=== PATIENT | female | born 1960 | race Caucasian/White ===

== ENCOUNTER 2016-05-13 16:46 | Emergency (ER) | payer MEDICAID ==
[~2016-05-13] VITALS: Ht 157.5 cm; Wt 86.0 kg
[2016-05-13 16:49] VITALS: BP 147/89; PULSE 86; RESP 16; TEMP 98.4; O2SAT 98
[2016-05-13] MEDS ORDERED: BENZ100 PO (16:58)
[2016-05-13] MEDS ORDERED: PRED20 PO (16:58)
[2016-05-13] MEDS ORDERED: AZIT250T3 PO (16:58)
[2016-05-13] MEDS ORDERED: ZOLO50TA PO (17:00)
--- NOTE | 2016-05-13 17:10 | PD ---
HPI Chief Complaint: Cold / Flu Symptoms Time Seen by Provider: 17:05 Travel History International Travel<30 days: No Contact w/Intl Traveler<30days: No Traveled to known affect area: No History of Present Illness HPI 56-year-old female that presents to the ED for evaluation of cold-like symptoms. Patient has had cough and chest pain with a cough for the past 2 days. Patient reports the cough is nonproductive. States having congestion. No fevers chills or sweats. No sick contacts. History of bronchitis in the past. History of all smoking. Has no allergies to medication. No abdominal pain. Chest pain only comes with cough. Has been taking OTC meds with minimal relief. No allergies to medication. PFSH Past Medical History Medical History: Denies Significant Hx Diminished Hearing: No Tetanus Vaccination: Never Vaccinated Influenza Vaccination: No ?: Not Past Surgical History Surgical History: No Previous Surgery Social History Alcohol Use: No Tobacco Use: No Substance Use: No Allergies-Medications (Allergen,Severity, Reaction): Coded Allergies: No Known Allergies (Unverified , 05/13/16) Reported Meds & Prescriptions Reported Meds & Active Scripts Active Tessalon Perles (Benzonatate) 100 Mg Cap 100 Mg PO TID PRN Azithromycin 250 Mg Tab 250 Mg PO DIRECTED Take 2 tabs (500 mg) on day 1 then 1 tab daily x 4 days. Prednisone 20 Mg Tab 20 Mg PO BID Reported Zoloft (Sertraline HCl) 50 Mg Tab 50 Mg PO DAILY Review of Systems Except as stated in HPI: all other systems reviewed are Neg Physical Exam Narrative GENERAL: Well-nourished, well-developed patient in no apparent distress. SKIN: Warm and dry. HEAD: Atraumatic. Normocephalic. EYES: Pupils equal and round reactive to light and accommodation. No scleral icterus. No injection or drainage. ENT: No nasal bleeding or discharge. Mucous membranes pink and moist. TMs are clear with no sign of infection or perforation. No mastoid tenderness. Ear canals are intact bilaterally. No lymphadenopathy. Nostril mucosa is red and moist with clear mucus noted. No sinus tenderness to palpation noted. Tonsils are not enlarged or swollen. No ulvua Deviation. Tongue is midline. NECK: Trachea midline. No JVD. No meningeal signs noted CARDIOVASCULAR: Regular rate and rhythm. RESPIRATORY: No accessory muscle use. Clear to auscultation. Breath sounds equal bilaterally. GASTROINTESTINAL: Abdomen soft, non-tender, nondistended. Hepatic and splenic margins not palpable. MUSCULOSKELETAL: Extremities without clubbing, cyanosis, or edema. No obvious deformities. Full range of motion of the upper and lower extremities bilaterally. NEUROLOGICAL: Awake and alert. No obvious cranial nerve deficits. Motor grossly within normal limits. Five out of 5 muscle strength in the arms and legs. Normal speech. PSYCHIATRIC: Appropriate mood and affect; insight and judgment normal. Data Data Last Documented VS Vital Signs Date Time Temp Pulse Resp B/P Pulse Ox O2 Delivery O2 Flow Rate FiO2 05/13/16 16:55 Room Air 05/13/16 16:49 98.4 86 16 147/89 98 Orders Chest, Single Ap (05/13/16 ) [facility] Medical Decision Making Medical Screen Exam Complete: Yes Emergency Medical Condition: Yes Medical Record Reviewed: Yes Interpretation(s) CXR negative for acute disease Differential Diagnosis URI versus pneumonia versus bronchitis Narrative Course 56-year-old female that presents to the ED for evaluation of cold-like symptoms. Patient was properly examined and was found to have signs and symptoms consistent appears to be bronchitis versus pneumonia. At this time I recommend chest x-ray to rule out pneumonia. Patient's agreement with this. Chest x-ray negative for pneumonia. Patient was reassured. This time I recommend treatment of bronchitis. Patient will be given Tessalon Perles, prednisone, azithromycin. Told to follow with PCP. Take OTC medicines as needed. See ED if worsening symptoms. Diagnosis Primary Impression: Bronchitis Patient Instructions: General Instructions Additional Instructions: Motrin and Tylenol for pain and fever. You can use [id number] antihistamine as well as well as Mucinex as needed for runny nose and congestion. Cough drops for cough as needed. Drink plenty of fluids. Follow-up with PCP. See ED for worsening symptoms. Med/Other Pt SpecificInfo: Prescription(s) given Scripts Benzonatate (Tessalon Perles)100 Mg [id number] Mg PO TID PRN (COUGH) #20 CAP Prov:Joao Alaniz MD 05/13/16 Azithromycin 250 Mg [id number] Mg PO DIRECTED #6 TAB Take 2 tabs (500 mg) on day 1 then 1 tab daily x 4 days. Prov:Joao Alaniz MD 05/13/16 Prednisone 20 Mg Tab20 Mg PO BID #10 TAB Prov:Joao Alaniz MD 05/13/16 Disposition: 01 DISCHARGE HOME Condition: Stable Angel De Oliveira May 13, 2016 17:10
--- NOTE | 2016-05-13 17:26 | RADHPO ---
EXAM DATE/TIME: 05/13/2016 16:55 [facility] COMPARISON: No previous studies available for comparison. INDICATIONS : Patient states cough and chest pressure, MEDICAL HISTORY : None. SURGICAL HISTORY : None. ENCOUNTER: Initial ACUITY: 3 days PAIN SCORE: 2/10 LOCATION: Bilateral chest FINDINGS: A single view of the chest demonstrates the lungs to be symmetrically aerated without evidence of mas s, infiltrate or effusion. The cardiomediastinal contours are unremarkable. Osseous structures are intact. CONCLUSION: Normal examination for a patient of this age. Andres Salazar MD on May 13, 2016 at 17:25 Board Certified Radiologist. This report was verified electronically.
== END 2016-05-13 17:50 | disposition home or self-care (01) ==
LOC: PHEFT 16:46
DX: J40 Bronchitis, not specified as acute or chronic (principal); Z87.891 Personal history of nicotine dependence
CPT/HCPCS: 71010; 99283

== ENCOUNTER 2017-06-22 17:13 | Observation (INO) | payer SELFPAY ==
[2017-06-22] VITALS (7 sets, daily range): BP systolic 124–146; BP diastolic 78–102; PULSE 54–81; RESP 16–18; TEMP 95.8–98.5; O2SAT 95–99
[~2017-06-22] VITALS: Ht 157.5 cm; Wt 77.1 kg
[~2017-06-22 17:13] MED LIST: AZIT250T3 PO; BENZ100 PO; PRED20 PO; ZOLO50TA PO
[2017-06-22] MEDS ORDERED: SODIUM CHLORID 0.9% 500 ML INJ 500 ML IV ONE (18:00)
[2017-06-22] MEDS ORDERED: ASPIRIN 81 MG CHEW TAB PO ONE (18:00)
[2017-06-22] MEDS ORDERED: SODIUM CHLORIDE 0.9% FLUSH 10 ML FLUSH IVF PRN (18:00)
[2017-06-22 18:19] LABS: AUTOMATED NEUTROPHIL # 4.4 TH/MM3 (1.8-7.7); BASOPHIL # 0.1 TH/MM3 (0-0.2); BASOPHIL % 1.1 % (0.0-2.0); EOSINOPHIL # 0.2 TH/MM3 (0-0.4); HEMATOCRIT 41.7 % (35.0-46.0); HEMOGLOBIN 14.1 GM/DL (11.6-15.3); LYMPH % 38.3 % (9.0-44.0); LYMPHOCYTE # 3.3 TH/MM3 (1.0-4.8); MEAN CORPUSCULAR HEMOGLOBIN 30.9 PG (27.0-34.0); MEAN CORPUSCULAR HGB CONC 33.9 % (32.0-36.0); MEAN PLATELET VOLUME 8.7 FL (7.0-11.0); MONO % 6.9 % (0.0-8.0); MONOCYTE # 0.6 TH/MM3 (0-0.9); NEUT % 51.7 % (16.0-70.0); PLATELET COUNT 259 TH/MM3 (150-450); RED BLOOD COUNT 4.58 MIL/MM3 (4.00-5.30); RED CELL DISTRIBUTION WIDTH 12.1 % (11.6-17.2); WHITE BLOOD COUNT 8.6 TH/MM3 (4.0-11.0)
[2017-06-22 18:31] LABS: CHLORIDE 106 MEQ/L (98-107); SODIUM (NA) 139 MEQ/L (136-145)
[2017-06-22 18:34] LABS: CALCIUM 8.6 MG/DL (8.5-10.1)
[2017-06-22 18:35] LABS: ALBUMIN 3.8 GM/DL (3.4-5.0); BLOOD UREA NITROGEN 16 MG/DL (7-18); GLUCOSE,RANDOM 96 MG/DL (74-106); MAGNESIUM 2.3 MG/DL (1.5-2.5); PROTHROMBIN TIME - PATIENT 10.6 SEC (9.8-11.6)
[2017-06-22 18:38] LABS: ALT (GPT) 39 U/L (10-53); AST (GOT) 26 U/L (15-37); GLOMERULAR FILTRATION RATE 52 ML/MIN (>89)
[2017-06-22 18:39] LABS: TOTAL BILIRUBIN ADULT 0.4 MG/DL (0.2-1.0)
[2017-06-22 18:41] LABS: ALKALINE PHOSPHATASE 94 U/L (45-117)
[2017-06-22 18:43] LABS: TROPONIN I LESS THAN 0.02 NG/ML (0.02-0.05)
[2017-06-22] MEDS ORDERED: MORPHINE SULFATE 4 MG/ML INJ IV PUSH ONE (18:45)
--- NOTE | 2017-06-22 18:48 | RADRPT ---
EXAM DATE/TIME: 06/22/2017 18:10 [facility] COMPARISON: No previous studies available for comparison. INDICATIONS : Chest pain. Belching frequently. MEDICAL HISTORY : None. SURGICAL HISTORY : None. ENCOUNTER: Initial ACUITY: 1 day PAIN SCORE: 8/10 LOCATION: Bilateral chest FINDINGS: PA and lateral views of the chest demonstrate the lungs to be symmetrically aerated without evidence of mass, infiltrate or effusion. The cardiomediastinal contours are unremarkable. Osseous structure s are intact. CONCLUSION: No acute disease. Олег Kaiser MD on June 22, 2017 at 18:42 Board Certified Radiologist. This report was verified electronically.
--- NOTE | 2017-06-22 20:28 | PD ---
HPI Chief Complaint: Chest Pain Time Seen by Provider: 17:31 Travel History International Travel<30 days: No Contact w/Intl Traveler<30days: No Traveled to known affect area: No History of Present Illness HPI Is a 57-year-old woman who presents to the emergency department complaining of chest pain. She reports epigastric fullness and discomfort over the past couple months. She describes a choking fullness in her chest and epigastrium. Seems to be related to eating. Not really worse with exertion. She does feel a suffocating fullness that she relates to being short of breath. She also feels abdominal fullness and bloating and states she put on 20 pounds over the past couple months. She otherwise had been feeling well and healthy. Symptoms were worse today and so she came to the emergency department. There are little bit worse with certain positions when she lays flat. Sometimes seems to be worse at night. No significant medical history. History Past Medical History Medical History: Denies Significant Hx Tetanus Vaccination: Unknown Social History Alcohol Use: No Tobacco Use: No Allergies-Medications (Allergen,Severity, Reaction): Coded Allergies: No Known Allergies (Unverified Adverse Reaction, Unknown, 06/22/17) Reported Meds & Prescriptions Reported Meds & Active Scripts Active Reported Zoloft (Sertraline HCl) 50 Mg Tab 50 Mg PO DAILY Review of Systems Except as stated in HPI: all other systems reviewed are Neg Physical Exam Narrative GENERAL: Well-appearing 57-year-old woman, no acute distress per SKIN: Focused skin assessment warm/dry. HEAD: Atraumatic. Normocephalic. EYES: Pupils equal and round. No scleral icterus. No injection or drainage. ENT: No nasal bleeding or discharge. Mucous membranes pink and moist. NECK: Trachea midline. No JVD. CARDIOVASCULAR: Regular rate and rhythm. No murmur appreciated. RESPIRATORY: No accessory muscle use. Clear to auscultation. Breath sounds equal bilaterally. GASTROINTESTINAL: Minimal epigastric tenderness. No significant right upper quadrant tenderness. MUSCULOSKELETAL: No obvious deformities. No clubbing. No cyanosis. No edema. NEUROLOGICAL: Awake and alert. No obvious cranial nerve deficits. Motor grossly within normal limits. Normal speech. PSYCHIATRIC: Appropriate mood and affect; insight and judgment normal. Data Data Last Documented VS Vital Signs Date Time Temp Pulse Resp B/P (MAP) Pulse Ox O2 Delivery O2 Flow Rate FiO2 06/22/17 20:37 70 18 140/83 (102) 98 Room Air 06/22/17 17:57 2.00 06/22/17 17:30 98.5 Orders Orders Electrocardiogram (06/22/17 17:53) Complete Blood Count With Diff (06/22/17 17:53) Comprehensive Metabolic Panel (06/22/17 17:53) Magnesium (Mg) (06/22/17 17:53) Prothrombin Time / Inr (Pt) (06/22/17 17:53) Act Partial Throm Time (Ptt) (06/22/17 17:53) Troponin I (06/22/17 17:53) Lipase (06/22/17 17:53) Ecg Monitoring (06/22/17:53) Iv Access Insert/Monitor (06/22/17 17:53) Oximetry (06/22/17 17:53) Oxygen Administration (06/22/17 17:53) Aspirin Chew (Aspirin Chew) (06/22/17 18:00) Sodium Chloride 0.9% Flush (Ns Flush) (06/22/17 18:00) Sodium Chlorid 0.9% 500 Ml Inj (Ns 500 M (06/22/17 18:00) Chest, Pa & Lat (06/22/17 17:53) B-Type Natriuretic Peptide (06/22/17 18:27) Morphine Inj (Morphine Inj) (06/22/17 18:45) Us Abdomen Gallbladder (06/22/17 ) Admit Order (Ed Use Only) (06/22/17 ) Activity Bed Rest With Brp (06/22/17 21:48) Vital Signs (Adult) Q4H (06/22/17 21:48) Cardiac Rhythm .As Directed (06/22/17 21:48) Notify Dr: Other .PRN (06/22/17 21:48) Notify . Parameters (06/22/17 21:48) Resp Oxygen Nasal Cannula (06/22/17 ) Ckmb (Isoenzyme) Profile (06/22/17 21:48) Ckmb (Isoenzyme) Profile (06/23/17 00:48) Troponin I (06/22/17 21:48) Troponin I (06/23/17 00:48) Electrocardiogram (06/22/17 21:48) Electrocardiogram (06/23/17 00:48) ^ Obtain (06/22/17 21:48) Coin Teller / Telemetry [id number] (06/22/17 21:48) Labs Laboratory Tests Test 06/22/17 17:50 White Blood Count 8.6 TH/MM3 Red Blood Count 4.58 MIL/MM3 Hemoglobin 14.1 GM/DL Hematocrit 41.7 % Mean Corpuscular Volume 91.0 FL Mean Corpuscular Hemoglobin 30.9 PG Mean Corpuscular Hemoglobin Concent 33.9 % Red Cell Distribution Width 12.1 % Platelet Count 259 TH/MM3 Mean Platelet Volume 8.7 FL Neutrophils (%) (Auto) 51.7 % Lymphocytes (%) (Auto) 38.3 % Monocytes (%) (Auto) 6.9 % Eosinophils (%) (Auto) 2.0 % Basophils (%) (Auto) 1.1 % Neutrophils # (Auto) 4.4 TH/MM3 Lymphocytes # (Auto) 3.3 TH/MM3 Monocytes # (Auto) 0.6 TH/MM3 Eosinophils # (Auto) 0.2 TH/MM3 Basophils # (Auto) 0.1 TH/MM3 CBC Comment DIFF FINAL Differential Comment Prothrombin Time 10.6 SEC Prothromb Time International Ratio 1.0 RATIO Activated Partial Thromboplast Time 26.1 SEC Blood Urea Nitrogen 16 MG/DL Creatinine 1.10 MG/DL Random Glucose 96 MG/DL Total Protein 8.0 GM/DL Albumin 3.8 GM/DL Calcium Level 8.6 MG/DL Magnesium Level 2.3 MG/DL Alkaline Phosphatase 94 U/L Aspartate Amino Transf (AST/SGOT) 26 U/L Alanine Aminotransferase (ALT/SGPT) 39 U/L Total Bilirubin 0.4 MG/DL Sodium Level 139 MEQ/L Potassium Level 3.7 MEQ/L Chloride Level 106 MEQ/L Carbon Dioxide Level 27.0 MEQ/L Anion Gap 6 MEQ/L Estimat Glomerular Filtration Rate 52 ML/MIN Troponin I LESS THAN 0.02 NG/ML B-Type Natriuretic Peptide 16 PG/ML Lipase 222 U/L [facility] Medical Decision Making Medical Screen Exam Complete: Yes Emergency Medical Condition: Yes Interpretation(s) My review of EKG: Normal sinus rhythm at a rate of 75, normal axis, maybe a little bit leftward, normal intervals, no definite evidence of acute ischemia. LABS CBC is unremarkable CMP remarkable for mildly elevated creatinine Troponin negative BNP 16 Lipase 222 Coags unremarkable Chest x-ray: No acute disease Differential Diagnosis Gastritis, reflux, hepatobiliary disease, pancreatitis, gastritis, ACS, PE, other Narrative Course Medical decision making Is a well-appearing 57-year-old woman presents with epigastric pain, postprandial, not really exertional, ongoing for a while, worse today. Some shortness of breath with it. May be a little bit short of breath with exertion. Abdominal bloating and fullness. She looks well. EKG is nondiagnostic. Will check ultrasound of the gallbladder. Reassess. FINAL: Initial workup is unremarkable. Likely this is GI the patient is developing new concerning symptoms including choking squeezing chest pain over the past 24 hours that she did not really have before. She does have shortness of breath with exertion as well. Taken altogether think she is a reasonable candidate for the chest pain center. She does not have any follow-up physician. I spoke with Dr. Chen who will accept the patient. Diagnosis Primary Impression: Chest pain Admitting Information Admitting Physician Requests: Observation Davey Yancey MD June 22, 2017 20:28
--- NOTE | 2017-06-22 21:06 | RADRPT ---
EXAM DATE/TIME: 06/22/2017 19:53 [facility] COMPARISON: No previous studies available for comparison. INDICATIONS : Belching and epigastric pain that radiates to the right. MEDICAL HISTORY : Glasses. Depression. SURGICAL HISTORY : Breast reduction. ENCOUNTER: Initial ACUITY: 1 month PAIN SCORE: 8/10 LOCATION: Right upper quadrant MEASUREMENTS: LIVER: 15.2 cm length COMMON DUCT: 4 mm RIGHT KIDNEY: 9.2 x 5.2 x 4.3 cm FINDINGS: LIVER: The liver is diffusely echogenic without focal lesion or ductal dilatation. COMMON DUCT: No intraluminal mass or stone visualized. GALLBLADDER: Contains no stones, demonstrates no wall thickening or pericholecystic fluid. PANCREAS: The visualized portions are within normal limits. RIGHT KIDNEY: No evidence of hydronephrosis, stone, or mass. CONCLUSION: Suspected hepatic steatosis. Олег Kaiser MD on June 22, 2017 at 21:04 Board Certified Radiologist. This report was verified electronically.
[2017-06-22 22:56] LABS: TROPONIN I LESS THAN 0.02 NG/ML (0.02-0.05)
[2017-06-23] VITALS (8 sets, daily range): BP systolic 113–168; BP diastolic 70–96; PULSE 55–70; RESP 18–20; TEMP 96.1–97.3; O2SAT 96–99
[2017-06-23 01:41] LABS: TROPONIN I LESS THAN 0.02 NG/ML (0.02-0.05)
--- NOTE | 2017-06-23 08:39 | HHI.HP ---
[facility] No Primary Care Physician Admission Diagnosis Chest pain Diagnoses: Chief Complaint: Chest pain Travel History International Travel<30 Days: No Contact w/Intl Traveler <30 Da: No Traveled to Known Affected Are: No History of Present Illness This is a pleasant 57-year-old female patient with no known medical history who presented to the ED with complaints of chest pain. Patient states the pain started yesterday in her midsternal chest and midepigastric area, states she felt like she "could not get her breath". Patient states the pain radiated up her neck, was characteristically sharp in nature, denies any nausea or vomiting or diaphoresis but did complain of shortness of breath with the pain. Patient rated the pain an 8 out of 10 at its worst and was intermittent throughout most of the day yesterday. Patient states that the pain became worse with activity and did subside with rest. Patient denies ever having this type of pain before. It should be noted that patient has gained roughly 20 pounds over the past 2 months. And does admit to abdominal fullness and bloating. Patient does not follow with a protozoologist although states she has had some digestive issues in the past. Denies any recent fever, chills, cough, headache , nausea, vomiting, diarrhea dysuria. Did undergo a cardiac stress test 10 years ago which was reportedly negative. Is not following with the primary care doctor, did recently moved from [place] last year. Patient has been undergoing a lot of stress. Denies any bloody stools or black stools. Troponins flat. Chest x-ray negative. Gallbladder ultrasound showing hepatic steatosis. EKG with sinus rhythm. No ST changes to indicate ischemia. Review of Systems Constitutional: COMPLAINS OF: Weight gain, DENIES: Diaphoretic episodes, Fatigue, Fever, Chills Eyes: DENIES: Diplopia, Eye inflammation Respiratory: COMPLAINS OF: Shortness of breath, DENIES: Cough, Sputum production Cardiovascular: COMPLAINS OF: Chest pain, DENIES: Palpitations Gastrointestinal: COMPLAINS OF: Abdominal pain, DENIES: Black stools, Bloody stools, Constipation, Diarrhea, Nausea, Vomiting Musculoskeletal: DENIES: Joint pain Hematologic/lymphatic: DENIES: Bruising Neurologic: DENIES: Abnormal gait Psychiatric: COMPLAINS OF: Anxiety Except as stated in HPI: all other systems reviewed are Neg Past Family Social History Past Medical History PTSD/depression Past Surgical History Denies any prior surgery. Reported Medications Active Reported Zoloft (Sertraline HCl) 50 Mg Tab 50 Mg PO DAILY Allergies: Coded Allergies: No Known Allergies (Unverified Allergy, Unknown, 06/23/17) Active Ordered Medications Current Medications Medications (Trade) Dose Ordered Sig/Deandre Route Start Time Stop Time Status Last Admin (NS Flush) 2 ml UNSCH PRN IVF 06/22/17 18:00 (Zoloft) 50 mg DAILY PO 06/23/17 10:00 06/23/17 10:24 (Protonix) 40 mg DAILY PO 06/23/17 11:00 Family History Maternal medical history significant for stroke. Social History Denies any alcohol, tobacco or illicit drug use. Physical Exam Vital Signs Vital Signs Date Time Temp Pulse Resp B/P (MAP) Pulse Ox O2 Delivery O2 Flow Rate FiO2 06/23/17 04:00 96.1 59 20 136/88 (104) 97 06/23/17 00:40 98 21 06/23/17 00:00 96.3 56 20 128/77 (94) 97 06/22/17 23:30 95.8 54 139/89 (106) 95 06/22/17 23:18 68 18 97 06/22/17 23:16 68 18 124/78 (93) 98 Room Air 06/22/17 22:09 74 18 136/84 (101) 97 Room Air 06/22/17 20:37 70 18 140/83 (102) 98 Room Air 06/22/17 19:25 72 18 146/102 (117) 98 Room Air 06/22/17 17:57 16 99 Nasal Cannula 2.00 06/22/17 17:30 98.5 81 16 140/81 (100) 99 06/22/17 17:29 16 99 Nasal Cannula 2.00 06/22/17 17:27 99 Nasal Cannula 2.00 Physical Exam GENERAL: Well-developed, well-nourished patient in NAD. SKIN: Warm and dry. No rash. HEAD: Normocephalic. Atraumatic. EYES: Pupils equal and round. No scleral icterus. No injection or drainage. ENT: No nasal bleeding or discharge. Mucous membranes pink and moist. NECK: Supple. Trachea midline. CARDIOVASCULAR: Regular rate and rhythm. S1, S2 noted. No murmur appreciated. No chest pain to palpation. RESPIRATORY: No accessory muscle use. Clear to auscultation. Breath sounds equal bilaterally. GASTROINTESTINAL: Abdomen soft, non-tender, nondistended. Normoactive bowel sounds x4. MUSCULOSKELETAL: No obvious deformities. Extremities without clubbing, cyanosis , or edema. NEUROLOGICAL: Awake and alert. No obvious cranial nerve deficits. Motor grossly within normal limits. 5/5 muscle strength in bilateral upper and lower extremities. Normal speech. PSYCHIATRIC: Appropriate mood and affect; insight and judgment normal. Laboratory Laboratory Tests Test 06/22/17 17:50 06/22/17 22:15 06/23/17 01:02 White Blood Count 8.6 Red Blood Count 4.58 Hemoglobin 14.1 Hematocrit 41.7 Mean Corpuscular Volume 91.0 Mean Corpuscular Hemoglobin 30.9 Mean Corpuscular Hemoglobin Concent 33.9 Red Cell Distribution Width 12.1 Platelet Count 259 Mean Platelet Volume 8.7 Neutrophils (%) (Auto) 51.7 Lymphocytes (%) (Auto) 38.3 Monocytes (%) (Auto) 6.9 Eosinophils (%) (Auto) 2.0 Basophils (%) (Auto) 1.1 Neutrophils # (Auto) 4.4 Lymphocytes # (Auto) 3.3 Monocytes # (Auto) 0.6 Eosinophils # (Auto) 0.2 Basophils # (Auto) 0.1 CBC Comment DIFF FINAL Differential Comment Prothrombin Time 10.6 Prothromb Time International Ratio 1.0 Activated Partial Thromboplast Time 26.1 Blood Urea Nitrogen 16 Creatinine 1.10 Random Glucose 96 Total Protein 8.0 Albumin 3.8 Calcium Level 8.6 Magnesium Level 2.3 Alkaline Phosphatase 94 Aspartate Amino Transf (AST/SGOT) 26 Alanine Aminotransferase (ALT/SGPT) 39 Total Bilirubin 0.4 Sodium Level 139 Potassium Level 3.7 Chloride Level 106 Carbon Dioxide Level 27.0 Anion Gap 6 Estimat Glomerular Filtration Rate 52 Troponin I LESS THAN 0.02 LESS THAN 0.02 LESS THAN 0.02 B-Type Natriuretic Peptide 16 Lipase 222 Total Creatine Kinase 43 69 Result Diagram: 06/22/17 1750 06/22/17 1750 Septic Shock Reassessment Septic shock perfusion: reassessment completed Caprini VTE Risk Assessment Caprini VTE Risk Assessment: No/Low Risk (score <= 1) Caprini Risk Assessment Model Point Value = 1 Point Value = 2 Point Value = 3 Point Value = 5 Age 41-60 Minor surgery BMI > 25 kg/m2 Swollen legs Varicose veins or History of unexplained or recurrent spontaneous Oral contraceptives or hormone replacement Sepsis (< 1 month) Serious lung disease, including pneumonia (< 1 month) Abnormal pulmonary function Acute myocardial infarction Congestive heart failure (< 1 month) History of inflammatory bowel disease Medical patient at bed rest Age 61-74 Arthroscopic surgery Major open surgery (> 45 min) Laparoscopic surgery (> 45 min) Malignancy Confined to bed (> 72 hours) Immobilizing plaster cast Central venous access Age >= 75 History of VTE Family history of VTE Factor V Leiden Prothrombin [id number] Lupus anticoagulant Anticardiolipin antibodies Elevated serum homocysteine Heparin-induced thrombocytopenia Other congenital or acquired thrombophilia Stroke (< 1 month) Elective arthroplasty Hip, pelvis, or leg fracture Acute spinal cord injury (< 1 month) Prophylaxis Regimen Total Risk Factor Score Risk Level Prophylaxis Regimen 0-1 Low Early ambulation 2 Moderate Order ONE of the following: *Sequential Compression Device (SCD) *Heparin 5000 units SQ BID 3-4 Higher Order ONE of the following medications: *Heparin 5000 units SQ TID *Enoxaparin/Lovenox 40 mg SQ daily (WT < 150 kg, CrCl > 30 mL/min) *Enoxaparin/Lovenox 30 mg SQ daily (WT < 150 kg, CrCl > 10-29 mL/min) *Enoxaparin/Lovenox 30 mg SQ BID (WT < 150 kg, CrCl > 30 mL/min) AND/OR *Sequential Compression Device (SCD) 5 or more Highest Order ONE of the following medications: *Heparin 5000 units SQ TID (Preferred with Epidurals) *Enoxaparin/Lovenox 40 mg SQ daily (WT < 150 kg, CrCl > 30 mL/min) *Enoxaparin/Lovenox 30 mg SQ daily (WT < 150 kg, CrCl > 10-29 mL/min) *Enoxaparin/Lovenox 30 mg SQ BID (WT < 150 kg, CrCl > 30 mL/min) AND *Sequential Compression Device (SCD) Assessment and Plan Problem List: (1) Chest pain ICD Code: R07.9 - Chest pain, unspecified Status: Acute Plan: Patient has been admitted to the observation unit. Serial EKGs and serial troponins have been ordered for ruling out ACS purposes. Serial troponins flat. EKG reviewed showing sinus rhythm, no ST changes to indicate ischemia. Chest pain is intermittent. Patient will undergo a cardiac nuclear stress test to further rule out any ischemia. Patient is stable at this time and agreeable to the plan. Further hospitalization and treatment plan will depend on nuclear imaging results. Will add lipid panel to to labs. CBC and BMP reviewed essentially unremarkable. BNP 16. Chest x-ray reviewed showing no acute disease. Vital signs have been stable. Was given aspirin, morphine as well as 500 mL bolus of NS in the ED. continue cardiac telemetry. Patient's pain is likely secondary to gastrointestinal although underlying heart disease cannot be ruled out at this time. We will continue to monitor continue with nuclear stress test. Patient does have chronic back pain and is unable to walk on the treadmill (2) Abdominal pain ICD Code: R10.9 - Unspecified abdominal pain Plan: Gallbladder ultrasound performed showing suspected hepatic steatosis. Given GI cocktail, assess response. Started on Protonix daily. Supportive care. Assessment and Plan Patient underwent cardiac nuclear stress test, report reviewed EF greater than 70%. No stress-induced ischemia noted. No redistribution. Patient's pain is improved with GI cocktail. Will discharge with recommendations for follow-up with PCP. Patient is 57 years old, denies any colonoscopy, do recommend follow- up outpatient. patient does admit to increased stress and abdominal pain intermittently. Will place on Protonix. Patient is stable at this time and agreeable to the plan. Aracelis Epps June 23, 2017 08:39
[2017-06-23] MEDS ORDERED: SERTRALINE HCL 50 MG TAB PO SCH (10:00)
[2017-06-23] MEDS ORDERED: PANTOPRAZOLE SOD 40 MG DELAYED RELEASE TAB PO SCH (11:00)
[2017-06-23] MEDS ORDERED: ALUMINUM/MAGNESIUM/SIMETH 30 ML CUP PO ONE (11:00)
[2017-06-23] MEDS ORDERED: REGADENOSON INJ 0.4 MG/5 ML SYR IV ONE (12:23)
--- NOTE | 2017-06-23 13:38 | RADRPT ---
EXAM DATE/TIME: 06/23/2017 12:04 [place] COMPARISON: No previous studies available for comparison. INDICATIONS : Mid chest pain for one day. Angina. DOSE: 26.7 mCi Tc99m Myoview at stress. 8.8 mCi Tc99m Myoview at rest. 0.4 mg Lexiscan STRESS SYMPTOMS: Flush and short of breath. EJECTION FRACTION: > 70% MEDICAL HISTORY : None SURGICAL HISTORY : None. ENCOUNTER: Initial ACUITY: 1 day PAIN SCALE: 8/10 LOCATION: Midsternal chest TECHNIQUE: The patient underwent pharmacologic stress with infusion of prescribed dose. Continuous ECG tracing was monitored during stress. Gated SPECT imaging was performed after stress and conventional SPECT i maging was performed at rest. The examination was performed on a SPECT/CT scanner, both attenuation and non-corrected datasets were reviewed. FINDINGS: DISTRIBUTION: The maximum perfused segment at stress is in the septal wall. PERFUSION STUDY: Regional variations in perfusion at stress are within 30%. The pattern of perfusion at stress and re st is unchanged without evidence of redistribution. The summed stress score is 3. GATED STUDY: There is intact wall motion and thickening without hypokinetic or dyskinetic segments. CONCLUSION: 1. No evidence of stress-induced ischemia. 2. Intact wall motion with greater than 70% ejection fraction. RISK CATEGORY: Low (<1% Annual Mortality Rate) Valentino Jamil MD on June 23, 2017 at 13:34 Board Certified Radiologist. This report was verified electronically.
--- NOTE | 2017-06-23 13:42 | EKG ---
Date Performed: 06/23/2017 Time Performed: 00:37:15 PTAGE: 57 years EKG: SINUS BRADYCARDIA MARKED LEFT AXIS DEVIATION PATTERN CONSISTENT WITH PULMONARY DISEASE ABNO RMAL ECG PREVIOUS TRACING : 06/22/2017 22.08 Since the previous tracing, no significant change noted DOCTOR: Cole Dodson Interpretating Date/Time 06/23/2017 13:41:01
--- NOTE | 2017-06-23 13:45 | EKG ---
Date Performed: 06/22/2017 Time Performed: 22:08:49 PTAGE: 57 years EKG: SINUS BRADYCARDIA MARKED LEFT AXIS DEVIATION PATTERN CONSISTENT WITH PULMONARY DISEASE ABNO RMAL ECG PREVIOUS TRACING : 06/22/2017 17.21 Since the previous tracing, no significant change noted DOCTOR: Cole Dodson Interpretating Date/Time 06/23/2017 13:43:18
--- NOTE | 2017-06-23 13:53 | EKG ---
Date Performed: 06/22/2017 Time Performed: 17:21:40 PTAGE: 57 years EKG: Sinus rhythm BORDERLINE LEFT AXIS DEVIATION BORDERLINE ECG NO PREVIOUS TRACING DOCTOR: Cole Dodson Interpretating Date/Time 06/23/2017 13:50:51
[2017-06-23] MEDS ORDERED: PROT40TA PO (14:08)
--- NOTE | 2017-06-23 14:08 | HHI.DCPOC ---
Discharge Care Plan Diagnosis: (1) Chest pain (2) Abdominal pain Goals to Promote Your Health * To prevent worsening of your condition and complications * To maintain your health at the optimal level Directions to Meet Your Goals Take your medications as prescribed Follow your dietary instruction Follow activity as directed Keep your appointments as scheduled Take your immunizations and boosters as scheduled If your symptoms worsen call your PCP, if no PCP go to Urgent Care Center or Emergency Room Smoking is Dangerous to Your Health. Avoid second hand smoke Call the 24-hour hour crisis hotline for domestic abuse at [facility] June 23, 2017 14:08
--- NOTE | 2017-06-23 14:11 | TR ---
Date Performed: 06/23/2017 Time Performed: 12:31:28 DOCTOR: Abhishek Basurto DRUG LIST: CLINICAL HISTORY: ANGINA REASON FOR TEST: Angina REASON FOR ENDING: OBSERVATION: CONCLUSION: COMMENTS: Lexiscan stress test was performed under standard four minute protocol. Radionuclide was injected one minute prior to ending the test. No electrocardiographic abormalities were present t o suggest ischemia. Nuclear imaging and interpretation are pending.
[2017-06-23] MEDS ORDERED: MAG-LIQ PO (14:37)
[2017-06-23 18:04] LABS: CHOLESTEROL/ HDL RATIO 5.49 RATIO; HDL CHOLESTEROL 39.7 MG/DL (40.0-60.0)
--- NOTE | 2017-06-24 21:38 | EKG ---
Date Performed: 06/23/2017 Time Performed: 11:26:16 PTAGE: 57 years EKG: SINUS BRADYCARDIA MARKED LEFT AXIS DEVIATION PATTERN CONSISTENT WITH PULMONARY DISEASE ABNO RMAL ECG PREVIOUS TRACING : 06/23/2017 00.37 Since the previous tracing, no significant change noted DOCTOR: Cole Dodson Interpretating Date/Time 06/24/2017 21:37:29
== END 2017-06-23 15:19 | disposition home or self-care (01) ==
LOC: PHED 17:13 → PHEDA 21:48 → PH3B 23:24
PROVIDERS: ADMIT Hospitalist; ATTEND Hospitalist
DX: R07.89 Other chest pain (principal); R10.9 Unspecified abdominal pain; R06.02 Shortness of breath; R00.1 Bradycardia, unspecified; R94.31 Abnormal electrocardiogram [ECG] [EKG]; F43.10 Post-traumatic stress disorder, unspecified; M54.9 Dorsalgia, unspecified; G89.29 Other chronic pain; M54.2 Cervicalgia; R14.0 Abdominal distension (gaseous); F32.9 Major depressive disorder, single episode, unspecified; Z79.899 Other long term (current) drug therapy
CPT/HCPCS: 71046; 76705; 78452; 80053; 80061; 82550; 83690; 83735; 83880; 84443; 84484; 85025; 85610; 85730; 93005; 93017; 96361; 96374; 96376; 99285; A9502; G0378; J2270; J2785; J7040